=== PATIENT | male | born 1970 | race Caucasian/White ===

== ENCOUNTER 2016-06-29 17:04 | Emergency (ER) | payer BC, OTHER ==
[2016-06-29] MEDS ORDERED: DIAZEPAM 5 MG/ML SYRG IM ONE (18:13)
[2016-06-29] MEDS ORDERED: KETOROLAC TROMETHAMINE 60 MG/2 ML VIAL IM ONE ×2 (18:13→18:18)
[2016-06-29] MEDS ORDERED: DIAZEPAM 5 MG/ML SYRG ONE (18:17)
--- NOTE | 2016-06-29 18:22 | ERNOTE ---
Head Injury HPI - Narrative Date of Service: 06/29/16 - General Injury to: other - Neck Time Seen by Provider: 06/29/16 18:07 Source: patient, RN notes reviewed Exam Limitations: no limitations - Immun/Allergies/Home Medications Immunization: IMMUNIZATION HX Immunizations Up to Date No History of Influenza Vaccine No Hx Pneumococcal Vaccination No Allergies/Adverse Reactions: Allergies Allergy/AdvReac Type Severity Reaction Status Date / Time No Known Allergies Allergy Verified 06/29/16 17:17 Home Medications: HOME MEDICATIONS Albuterol Sulfate [Proair Hfa] 8.5 gm IH DAILY PRN 12/21/12 [Last Taken Unknown] Cyclobenzaprine HCl [Flexeril] 10 mg PO TID PRN #30 tab 06/29/16 [Last Taken Unknown] Ibuprofen [Motrin] 600 mg PO Q6H PRN #40 tab 06/29/16 [Last Taken Unknown] - History of Present Illness Narrative: 46 y/o male brought to the ED by his for neck pain. He had some discomfort in the right posterior neck this morning when he woke up. This suddenly became severe later in the morning. He describes having muscle spasms several times throughout the day. His pain is much worse when he turns his head to the right. He took ibuprofen this morning but has had nothing since. Method of Injury: Reports: no apparent injury Review of Systems - Review of Systems Constitutional: Absent: recent illness, fever, chills EYE: Present: no symptoms reported ENT: Absent: sore throat, throat swelling Respiratory: Absent: shortness of breath, cough Cardiology: Absent: chest pain, syncope Gastrointestinal/Abdominal: Absent: nausea, vomiting Genitourinary: Present: no symptoms reported Musculoskeletal: Present: muscle pain, muscle stiffness, neck pain. Absent: back pain, joint pain, joint swelling Skin: Absent: rash, lesions, lumps, change in color Neurological: Absent: headache, dizziness/light-headedness, weakness, numbness, tingling Endocrine: Present: no symptoms reported Hematologic/Lymphatic: Present: no symptoms reported Psych: Present: no symptoms reported - Patient's Past Medical History Patient History - Medical: No pertinent hx Patient History - Cardiac/Respiratory: Asthma, Hypertension Patient History - Cancer: No Hx of Cancer Patient History - Surgical Procedures: No surgical history Patient History - Other: None - Social History Living Situations: significant other Abuse History: No History of abuse Psych History: No pertinent hx Smoking Status: Former smoker Have you smoked in the past 12 months: No Do you dip or chew tobacco: No Smoking Stop Date: 04/11/02 Patient requests Smoking Cessation Consult: No Initiate information on Smoking Cessation: No Alcohol Use: none Drug Use: none - Immunizations Immunizations Up to Date: No Hx Pneumococcal Vaccination: No History of Influenza Vaccine: No Physical Exam - Physical Exam General Appearance: Present: wd/wn, alert, no apparent distress Eye Exam: Normal inspection: bilateral Ears, Nose, Throat: Present: normal ENT inspection Neck: Present: supple, limited range of motion, tender lateral - right posterior. Absent: lymphadenopathy (R), lymphadenopathy (L), tender posterior midline Respiratory: Present: no respiratory distress, normal breath sounds, no accessory muscle use, lungs clear Cardiovascular/Chest: Present: regular rate, rhythm, no murmur Back Exam: Present: normal inspection, no vertebral tenderness Extremity Exam: Present: normal inspection, normal range of motion, no edema Neurological Exam: Present: alert, oriented, normal mood/affect, no motor/ sensory deficits Skin Exam: Present: normal color, warm/dry ED Progress - Vital Signs Patient's Vital Signs:: I have reviewed the patient's vital signs. Vital Signs: Vital Signs 06/29/16 17:08 Temperature 36.9 C Pulse Rate 79 Respiratory 14 Rate Blood Pressure 160/104 O2 Sat by Pulse 96 Oximetry - Progress/Reassessment Chief Complaint: Neck Pain/Injury Progress:: Improved Progress Note-Subjective: Verbalizes some improvement in pain after Toradol and Valium IM, states he can turn his head easier now Departure Clinical Impression: Torticollis, acute - Departure Disposition: Home self-care Condition: Good Instructions: Acute Torticollis Referrals: Jay Vivar MD [Primary Care Provider] - Prescriptions: Cyclobenzaprine HCl [Flexeril] 10 mg PO TID PRN #30 tab PRN Reason: MUSCLE SPASMS Ibuprofen [Motrin] 600 mg PO Q6H PRN #40 tab PRN Reason: Pain
[2016-06-29 19:09] VITALS: BP 154/96
== END 2016-06-29 19:07 | disposition home or self-care (01) ==
LOC: ER 17:04
DX: M43.6 Torticollis (principal); Z87.891 Personal history of nicotine dependence; J45.909 Unspecified asthma, uncomplicated

== ENCOUNTER 2016-08-15 02:29 | Emergency (ER) | payer BC ==
[2016-08-15 02:38] VITALS: BP 143/72
[2016-08-15] MEDS ORDERED: ALBUTEROL SULFATE/IPRATROPIUM 3 ML NEBU IH ONE ×3 (02:42→02:46)
--- NOTE | 2016-08-15 02:45 | ERNOTE ---
Dyspnea - General Presenting Symptoms: shortness of breath Time Seen by Provider: 08/15/16 02:40 Source: patient Exam Limitations: no limitations - Immun/Allergies/Home Medications Immunizations: IMMUNIZATION HX Immunizations Up to Date Yes History of Influenza Vaccine No Hx Pneumococcal Vaccination No Allergies/Adverse Reactions: Allergies No Known Allergies Allergy (Verified 08/15/16 02:38) Home Medications: HOME MEDICATIONS Albuterol Sulfate [Proair Hfa] 8.5 gm IH DAILY PRN 12/21/12 [Last Taken Unknown] Ibuprofen [Motrin] 600 mg PO Q6H PRN #40 tab 06/29/16 [Last Taken Unknown] Albuterol Sulfate [Proventil Hfa] 6.7 gm IH TID #1 [id number] 08/15/16 [Last Taken Unknown] - History of Present Illness Narrative: pt feels minimally short of breath. He has asthma and is out of his inhaler. No other symptoms. He denies feeling short of breath now. Review of Systems - Review of Systems Constitutional: Present: no symptoms reported EYE: Present: no symptoms reported ENT: Present: no symptoms reported Respiratory: Present: no symptoms reported Cardiology: Present: no symptoms reported Gastrointestinal/Abdominal: Present: no symptoms reported Genitourinary: Present: no symptoms reported Musculoskeletal: Present: no symptoms reported Skin: Present: no symptoms reported - Patient's Past Medical History Patient History - Medical: GERD Patient History - Cardiac/Respiratory: Asthma, Hypertension Patient History - Cancer: No Hx of Cancer Patient History - Surgical Procedures: No surgical history Patient History - Other: None - Social History Living Situations: home Abuse History: No History of abuse Psych History: No pertinent hx Smoking Status: Never smoker Have you smoked in the past 12 months: No Do you dip or chew tobacco: No Alcohol Use: none Drug Use: none - Immunizations Immunizations Up to Date: Yes Hx Pneumococcal Vaccination: No History of Influenza Vaccine: No Physical Exam - Physical Exam General Appearance: Present: wd/wn, alert, no apparent distress Ears, Nose, Throat: Present: normal ENT inspection Neck: Present: normal inspection, nontender, supple Respiratory: Present: no respiratory distress, normal breath sounds, no accessory muscle use, chest nontender, lungs clear Cardiovascular/Chest: Present: regular rate, rhythm, no murmur, normal peripheral pulses ED Progress - Vital Signs Patient's Vital Signs:: I have reviewed the patient's vital signs. Vital Signs: Vital Signs 08/15/16 02:33 Temperature 36.6 C Pulse Rate 69 Respiratory 18 Rate Blood Pressure 143/72 O2 Sat by Pulse 96 Oximetry - Progress/Reassessment Chief Complaint: Dyspnea Departure Clinical Impression: Medication refill - Departure Disposition: Home self-care Condition: Good Instructions: Bronchospasm, Adult Referrals: Jay Vivar MD [Primary Care Provider] - Prescriptions: Albuterol Sulfate [Proventil Hfa] 6.7 gm IH TID #1 [email or web address]
== END 2016-08-15 03:02 | disposition home or self-care (01) ==
LOC: ER 02:29
DX: R06.00 Dyspnea, unspecified (principal); J45.909 Unspecified asthma, uncomplicated